=== PATIENT | female | born 1935 | race Caucasian/White ===

== ENCOUNTER 2020-08-19 11:40 | Emergency (ER) | payer OTHER ==
[~2020-08-19] VITALS: Ht 144.8 cm; Wt 34.0 kg
[2020-08-19 12:28] VITALS: BP 138/72
== END 2020-08-19 12:30 | disposition home or self-care (01) ==
LOC: M.ERS 11:40
DX: S61.411A Laceration without foreign body of right hand, initial encounter (principal); W22.8XXA Striking against or struck by other objects, initial encounter; Y93.89 Activity, other specified; Y92.89 Other specified places as the place of occurrence of the external cause; Y99.8 Other external cause status

== ENCOUNTER 2021-06-08 09:36 | Emergency (ER) | payer OTHER ==
[~2021-06-08] VITALS: Ht 144.8 cm; Wt 36.3 kg
[2021-06-08 10:00] LABS: URINE BILIRUBIN NEGATIVE (Negative); URINE BLOOD NEGATIVE (Negative); URINE CLARITY CLEAR; URINE COLOR YELLOW; URINE GLUCOSE-RANDOM NEGATIVE (Negative); URINE KETONES NEGATIVE (Negative); URINE LEUKOCYTES-REFLEX NEGATIVE (Negative); URINE NITRITE-REFLEX NEGATIVE (Negative); URINE PROTEIN NEGATIVE (Negative); URINE SPECIFIC GRAVITY 1.015 (1.005-1.030); URINE UROBILINOGEN 0.2 E.U./dl (0.2-1.0)
[2021-06-08 10:20] VITALS: BP 134/80
== END 2021-06-08 10:21 | disposition home or self-care (01) ==
LOC: M.ERS 09:36
PROVIDERS: Emergency Medicine Emergency Medical Services
DX: R35.0 Frequency of micturition (principal); M17.11 Unilateral primary osteoarthritis, right knee; R10.9 Unspecified abdominal pain; Z98.890 Other specified postprocedural states

== ENCOUNTER 2021-08-27 11:02 | Inpatient (IN) | payer OTHER ==
[~2021-08-27] VITALS: Ht 144.8 cm; Wt 38.9 kg
[2021-08-27 11:06] VITALS: BP 136/70
[2021-08-27 15:22] LABS: MCH 33.5 pg (26.0-34.0); MCHC 33.2 g/dL (28.0-37.0); WBC 12.1 thou/uL (4.0-11.0)
[2021-08-27 15:23] LABS: HEMATOCRIT 50.1 % (37.0-47.0); HEMOGLOBIN 16.6 gm/dL (12.0-15.0); MPV 8.3 fl. (7.2-11.1); NUCLEATED RBCS 0 /100WBC; PLATELET COUNT* 183 thou/uL (150-400); RBC 4.96 mil/uL (4.20-5.00)
[2021-08-27 15:50] LABS: ALBUMIN 3.5 g/dL (3.4-5.0); CALCIUM 10.7 mg/dL (8.5-10.1); CREATININE 0.8 mg/dL (0.6-1.3); POTASSIUM 3.4 mmol/L (3.5-5.1); TOTAL PROTEIN 7.4 g/dL (6.4-8.2)
--- NOTE | 2021-08-27 16:17 | EKG ---
[place] [address] ELECTROCARDIOGRAM REPORT Name: JAMES RICHARD Room: [facility]#: [id number] Admission: 08/27/21 Attend Phys: Discharge: Date of : 39 Date of Service: 08/27/21 1430 Report #: [id number] THIS REPORT FOR: //name// [facility] ED Test Date: 2021-08-27 Test Time: 14:30:00 Pat Name: JAMES RICHARD Department: Room: Gender: Cargo Handler: Hardeep : 1935 Requested By: Nishi Kuo Order Number: [id number] MD: Dannie Taylor Measurements Intervals [place] Rate: 80 P: 86 OR: 177 QRS: -88 QRSD: 135 T: 92 QT: 407 QTc: 470 Interpretive Statements Atrial-ventricular dual-paced rhythm No further analysis attempted due to paced rhythm Compared to ECG 11/01/2008 07:43:45 paced beats now noted Electronically Signed On 08-27-2021 16:17:01 VENDING MACHINE ASSEMBLER by Dannie Taylor [email or web address] <ELECTRONICALLY SIGNED> By: Dannie Taylor MD, FAC 08/27/21 1617 1430 1430 Dannie Taylor MD, [facility] /EPI
[2021-08-27 16:29] LABS: ABSOLUTE LYMPHOCYTES 0.7 thou/uL (0.8-5.3); ABSOLUTE MONOCYTES 1.2 thou/uL (0.0-1.2); ABSOLUTE NEUTROPHILS 10.2 thou/uL (1.6-8.1); LARGE PLATELETS RARE; PLATELET ESTIMATE ADEQUATE
[2021-08-27 20:06] LABS: URINE BILIRUBIN NEGATIVE (Negative); URINE BLOOD TRACE (Negative); URINE CLARITY CLEAR; URINE COLOR YELLOW; URINE GLUCOSE-RANDOM NEGATIVE (Negative); URINE KETONES 1+ (Negative); URINE LEUKOCYTES-REFLEX NEGATIVE (Negative); URINE NITRITE-REFLEX NEGATIVE (Negative); URINE PROTEIN TRACE (Negative); URINE SPECIFIC GRAVITY 1.015 (1.005-1.030); URINE UROBILINOGEN 0.2 E.U./dl (0.2-1.0)
[2021-08-27 21:28] VITALS: BP 131/71
[2021-08-28] VITALS (7 sets, daily range): BP systolic 120–149; BP diastolic 63–80
[2021-08-28] MEDS ORDERED: FISH OIL 1,001000 M2 PO (15:37)
[2021-08-28] MEDS ORDERED: MULTI VITAMIN1 EACH PO (15:38)
[2021-08-28] MEDS ORDERED: ACETAMINOPHEN325 M1 PO (15:39)
[2021-08-28] MEDS ORDERED: TYLENOL325 MG PO (15:40)
--- NOTE | 2021-08-28 15:46 | NUR ---
Attempted to assess pt x2. Attempted to call sister - but she is not accepting calls from [facility] phone number. Pt is admitted with a bowel obstruction and may need surgical intervention. Pt presently has a NG tube. Will attempt to see patient tommorow on 08/29/21. CM to follow for discharge planning.
--- NOTE | 2021-08-29 00:19 | NUR ---
ASSUMED CARE UPON ADMISSION TO ROOM 310 PER BED ACCOMPANIED BY ER STAFF. PATIENT ALERT, VERY [place] AND DOES NOT ANSWER QUESTIONS. NG TO LIS TO LT NARE, PLACED AT 70 CM, DRAINING DK GREEN FLUID. D5NS INFUSING AT 70 ML/HR PER LT HAND. SKIN TEAR TO LT WRIST HAS TEGADERM APPLIED. WEARS BRIEF. MADE COMFORTABLE IN BED. CALL LITE IN REACH. BED ALARM ON. HOURLY ROUNDS.
--- NOTE | 2021-08-29 05:34 | NUR ---
SLEPT MOST OF THE NIGHT. NG DRAINING DK GREEN FLUID. IVF INFUSING TO LT HAND. HAS BRIEF ON, BUT HAS NOT NEEDED TO VOID. HOURLY ROUNDS CONTINUE. BED ALARM ON. CALL LITE IN REACH.
--- NOTE | 2021-08-29 06:05 | NUR ---
AWOKE C/O BEING WET. BRIEF CHANGED, SKIN CARE DONE. NO C/O PAIN.
[2021-08-29 08:07] LABS: ABSOLUTE LYMPHOCYTES 0.9 thou/uL (0.8-5.3); ABSOLUTE MONOCYTES 1.3 thou/uL (0.0-1.2); ABSOLUTE NEUTROPHILS 8.3 thou/uL (1.6-8.1); BASOPHILS 0.1 %; EOSINOPHILS 0.1 %; HEMATOCRIT 47.6 % (37.0-47.0); HEMOGLOBIN 15.6 gm/dL (12.0-15.0); LYMPHOCYTES 8.3 %; MCH 33.3 pg (26.0-34.0); MCHC 32.8 g/dL (28.0-37.0); MCV 101.5 fL (80.0-100.0); MONOCYTES 12.6 %; MPV 8.3 fl. (7.2-11.1); NUCLEATED RBCS 0 /100WBC; PLATELET COUNT* 192 thou/uL (150-400); POLYS 78.9 %; RBC 4.69 mil/uL (4.20-5.00); RDW-CV 13.2 % (10.5-14.5); WBC 10.5 thou/uL (4.0-11.0)
[2021-08-29 08:13] VITALS: BP 130/74
[2021-08-29 08:21] LABS: CALCIUM 9.3 mg/dL (8.5-10.1); CREATININE 0.6 mg/dL (0.6-1.3); PHOSPHORUS* 1.7 mg/dL (2.5-4.9)
[2021-08-29 08:34] LABS: POTASSIUM 2.5 mmol/L (3.5-5.1)
--- NOTE | 2021-08-29 09:32 | NUR ---
Pt is admitted to the hospital on 08/27/21 for abdominal pain and was found to have an ileus. Pt presently has an NG tube. Pt may need surgical intervention. She reports she was walking on her driveway to take out the trash when her knees gave away and she fell and her neighbors assisted her. Pt is alert and oriented x3. Pt lives alone in her own home and has 7 steps to enter. Pt is vaccinated for Covid. Pt reports no hx of HH, DME, or SNF. Pt was still driving before coming to the hospital. Pt is [place] - and reports her hearing aids are at home. Pt saw her PCP approximately for 1 month. Anticipate patient may need SNF vs HH. But may benefit from considering transitioning to an Assisted Living. It is noted DPOA identifed as Darrion Badillo but no phone number found. Sister is listed as spokesperson. CM to follow for discharge planning.
[2021-08-29 15:52] VITALS: BP 129/83
--- NOTE | 2021-08-29 17:30 | NUR ---
CM FOLLOWUP PT NOT MEDICALLY CLEAR TO DC YET. PT PENDING TREATMENT FOR SMALL BOWEL OBSTRUCTION. CM TO FOLLOW FOR DC NEEDS.
[2021-08-29 20:30] VITALS: BP 102/56
[2021-08-30] VITALS: BP 100/59
[2021-08-30 04:00] VITALS: BP 116/62
[2021-08-30 05:17] LABS: HEMOGLOBIN 16.7 gm/dL (12.0-15.0); MCH 33.4 pg (26.0-34.0); MCHC 32.7 g/dL (28.0-37.0); MCV 102.1 fL (80.0-100.0); MPV 8.8 fl. (7.2-11.1); WBC 16.7 thou/uL (4.0-11.0)
[2021-08-30 05:29] LABS: CALCIUM 9.8 mg/dL (8.5-10.1); CREATININE 0.8 mg/dL (0.6-1.3); POTASSIUM 3.4 mmol/L (3.5-5.1)
--- NOTE | 2021-08-30 06:52 | NUR ---
She has been withdrawn. NG put out about 1500 mls. She did request pain meds x 1. She was incontinent of urine x 3 this shift. Vitals have been stable. This am Na+ was critical at 161. I did stop her IVf's, she is NPO though. Dr Calderon was notified via You Call [facility]. She put an order in for a stat redraw. Patient has been sleeping all shift, I did place her on O2 at 2L n/c.
[2021-08-30 07:19] LABS: CALCIUM 9.8 mg/dL (8.5-10.1); CREATININE 0.8 mg/dL (0.6-1.3); POTASSIUM 3.2 mmol/L (3.5-5.1)
[2021-08-30 08:00] VITALS: BP 104/56
[2021-08-30 13:52] LABS: CALCIUM 9.6 mg/dL (8.5-10.1); CREATININE 0.7 mg/dL (0.6-1.3); POTASSIUM 3.5 mmol/L (3.5-5.1)
[2021-08-30 16:00] VITALS: BP 103/59
--- NOTE | 2021-08-30 17:53 | NUR ---
CM FOLLOWUP PT NOT MEDICALLY CLEAR AND WILL BE STAYING THROUGH WEEKEND. PT PENDING PT/OT EVALS FOR PLACEMENT DETERMINATION. CM TO FOLLOW.
--- NOTE | 2021-08-30 18:25 | NUR ---
PATIENT RESTING IN BED. NG TO LEFT NARE TO INTERMITTENT LOW SUCTION. IV TO LEFT HAND WITH D 5 1/2 NORMAL SALINE INFUSTING AT 100MLS/HR. NO QUESTIONS OR CONCERNS VOICED.
[2021-08-30 22:28] VITALS: BP 124/62
[2021-08-31 00:06] VITALS: BP 127/76
[2021-08-31 04:00] VITALS: BP 105/66
--- NOTE | 2021-08-31 04:03 | NUR ---
PT ORIENTED TO SELF AND TIME, FORGETFUL. VSS ON 2L O2 NC, IV FLUIDS INFUSING ORDERED, NG TUBE IN PLACE WITH LIS, PT REPOSITIONED Q2H. PRN IV PAIN MED REQUESTED AND GIVEN ORDERED. PT NPO - NEED ORDER. PT SLEEPING WELL, WILL CONTINUE TO MONITOR.
[2021-08-31 04:07] LABS: HEMATOCRIT 45.9 % (37.0-47.0); HEMOGLOBIN 15.1 gm/dL (12.0-15.0); MCH 33.7 pg (26.0-34.0); MPV 9.3 fl. (7.2-11.1); RBC 4.5 mil/uL (4.20-5.00); RDW-CV 13.6 % (10.5-14.5); WBC 14.1 thou/uL (4.0-11.0)
[2021-08-31 04:28] LABS: CALCIUM 9.1 mg/dL (8.5-10.1); CREATININE 0.7 mg/dL (0.6-1.3); POTASSIUM 3.2 mmol/L (3.5-5.1)
[2021-08-31 08:00] VITALS: BP 124/61
[2021-08-31 12:18] LABS: CALCIUM 9.4 mg/dL (8.5-10.1); CREATININE 0.8 mg/dL (0.6-1.3); POTASSIUM 3.6 mmol/L (3.5-5.1)
[2021-08-31 15:58] VITALS: BP 97/60
[2021-08-31 20:45] VITALS: BP 111/60
[2021-09-01] VITALS (19 sets, daily range): BP systolic 90–132; BP diastolic 41–72
[2021-09-01 01:04] LABS: POTASSIUM 3.7 mmol/L (3.5-5.1)
--- NOTE | 2021-09-01 01:34 | NUR ---
AT [address] HAGEN WITH PT'S 0030 SODIUM LEVEL OF 159 AND POTASSIUM LEVEL OF 3.7. ORDERS GIVEN TO CHANGE IV FLUIDS TO D5W NS WITH 20K TO RUN AT 175MLS PER HOUR.
[2021-09-01 06:18] LABS: HEMOGLOBIN 14.8 gm/dL (12.0-15.0); MCH 33.7 pg (26.0-34.0); MCHC 32.8 g/dL (28.0-37.0); MCV 102.6 fL (80.0-100.0); MPV 9.6 fl. (7.2-11.1); RBC 4.39 mil/uL (4.20-5.00); RDW-CV 13.8 % (10.5-14.5); WBC 15.9 thou/uL (4.0-11.0)
[2021-09-01 07:17] LABS: CALCIUM 8.8 mg/dL (8.5-10.1); CREATININE 0.9 mg/dL (0.6-1.3); POTASSIUM 3.7 mmol/L (3.5-5.1)
[2021-09-01 09:18] LABS: BE 2.7 mmol/L (-2 to +3)
[2021-09-01 09:24] LABS: PO2 48.9 mmHg (75.0-100.0)
--- NOTE | 2021-09-01 10:26 | NUR ---
PT TRANSFERRED TO ROOM [address] LOZADA AT BEDSIDE TO ASSESS PT. PT ON BIPAP AT THIS TIME. TELE APPLIED. WILL CONTINUE TO ASSES.
--- NOTE | 2021-09-01 11:42 | NUR ---
ARRIVED IN PT ROOM AROUND 0830 TO COMPLETE PT VITALS AND ASSESSMENT. PT WAS A&O, RESPONDING TO QUESTIONS APPROPRIATLY. PT ON 2LO2 UPON ARRIVAL WITH O2 STAT OF 78%. OX RAISED TO 8LO2 PER NC, STAT OF 84%. RT CALLED AND ARRIVED AND PLACED PT ON NON REBREATHER MASK WITH 15LO2, STAT OF 91%. RAPID RESPONSE CALLED AT 0847. PT TRANSFERED TO ICU AROUND 1000.
[2021-09-01 13:08] LABS: CALCIUM 7.6 mg/dL (8.5-10.1); CREATININE 1.1 mg/dL (0.6-1.3); MAGNESIUM 1.3 mg/dL (1.8-2.4); POTASSIUM 3.4 mmol/L (3.5-5.1)
[2021-09-01 13:18] LABS: APTT 29.6 Seconds (25.0-31.3); INR 1.2; PROTIME 11.9 Seconds (9.20-11.50)
[2021-09-01 13:22] LABS: PO2 64.5 mmHg (75.0-100.0); pH 7.339 (7.340-7.450)
[2021-09-01 13:23] LABS: BE -4.8 mmol/L (-2 to +3)
[2021-09-01 14:22] LABS: ALBUMIN 1.6 g/dL (3.4-5.0); DIRECT BILIRUBIN 0.3 mg/dL (<0.1-0.3); TOTAL BILIRUBIN 0.9 mg/dL (<0.1-1.0); TOTAL PROTEIN 4.8 g/dL (6.4-8.2)
--- NOTE | 2021-09-01 15:26 | NUR ---
PT INTUBATED AND PLACED ON VENTILATOR. RIGHT FEMORAL ARTERIAL LINE AND CVC LINE PLACED. UROLOGY CONSULTED FOR INABILITY TO PLACE HARRINGTON CATHETER HOWEVER DR. JOHNSON GAVE INSTRUCTIONS TO START COUDE CATHETER WILL ATTEMPT AGAIN BUT HAVE BEEN UNSUCESSFUL SO FAR. CONTACT RENAL TO INFORM OF PT'S CONDITION AND PULMONARY CONSULTED. WILL CONTINUE TO ASSESS.
--- NOTE | 2021-09-01 18:29 | NUR ---
IRUNARY CATHETER STARTED BY UROLOGY.
--- NOTE | 2021-09-01 19:23 | NUR ---
YUMIKO REPORT GIVEN TO RAVI LOYOLA
[2021-09-01 20:36] LABS: BE -3.7 mmol/L (-2 to +3); PCO2 44.3 mmHg (35.0-45.0); PO2 80.6 mmHg (75.0-100.0); pH 7.321 (7.340-7.450)
[2021-09-01 20:44] LABS: CALCIUM 8.2 mg/dL (8.5-10.1); CREATININE 1.3 mg/dL (0.6-1.3); MAGNESIUM 3.9 mg/dL (1.8-2.4); POTASSIUM 4.2 mmol/L (3.5-5.1)
[2021-09-02] VITALS (64 sets, daily range): BP systolic 55–6255; BP diastolic 32–165
[2021-09-02 01:28] LABS: ALBUMIN 1.5 g/dL (3.4-5.0); CREATININE 1.4 mg/dL (0.6-1.3); MAGNESIUM 3.3 mg/dL (1.8-2.4); POTASSIUM 4.3 mmol/L (3.5-5.1); TOTAL BILIRUBIN 0.6 mg/dL (<0.1-1.0); TOTAL PROTEIN 4.8 g/dL (6.4-8.2)
[2021-09-02 06:25] LABS: HEMATOCRIT 39.5 % (37.0-47.0)
[2021-09-02 06:28] LABS: MCH 33.3 pg (26.0-34.0); MCHC 32.5 g/dL (28.0-37.0); MCV 102.6 fL (80.0-100.0); MPV 10.5 fl. (7.2-11.1); NUCLEATED RBCS 0 /100WBC; PLATELET COUNT* 120 thou/uL (150-400); RBC 3.85 mil/uL (4.20-5.00); RDW-CV 13.5 % (10.5-14.5); WBC 28.8 thou/uL (4.0-11.0)
--- NOTE | 2021-09-02 06:33 | NUR ---
ASSUMED CARE AT 1910H, ON VENT AT 100% AND TOLERATED. ON FENTANYL DRIP AND LEVO TITRATED. PULMO UPDATED PT'S LAB RESULT WITH ORDERS CARRIED OUT. 600ML GREENISH OUTPUT FROM OG. NO FEVER AND NO DISTRESS NOTED. CONTINUE MONITORING AND TOWARDS GOALS. LEVO AT .8MICS AND FENTANYL AT 70MICS.
[2021-09-02 06:38] LABS: HEMOGLOBIN 12.8 gm/dL (12.0-15.0)
[2021-09-02 06:39] LABS: PHOSPHORUS* 2.6 mg/dL (2.5-4.9)
[2021-09-02 07:58] LABS: ABSOLUTE LYMPHOCYTES 0.9 thou/uL (0.8-5.3); ABSOLUTE MONOCYTES 0.6 thou/uL (0.0-1.2); ABSOLUTE NEUTROPHILS 27.4 thou/uL (1.6-8.1)
[2021-09-02 07:59] LABS: PLATELET ESTIMATE ADEQUATE
[2021-09-02 10:38] LABS: BE -4.6 mmol/L (-2 to +3); PCO2 48.9 mmHg (35.0-45.0); PO2 90.7 mmHg (75.0-100.0)
[2021-09-02 10:44] LABS: pH 7.279 (7.340-7.450)
--- NOTE | 2021-09-02 12:41 | 2DMMODE ---
[place] [address] 2 D/M-MODE ECHOCARDIOGRAM Name: HILARYJAMES Room: [address] IN [facility]#: [id number] Admission: 08/27/21 Attend Phys: Nir Stratton Discharge: Date of : 39 Date of Service: 09/02/21 1240 Report #: [id number] THIS REPORT FOR: cc: Jose Cormier MD, Gary E. MD Holkins,Riky Aleman MD [facility] ~ APPROVED REPORT Study performed: 09/02/2021 09:57:58 EXAM: Comprehensive 2D, Doppler, and color-flow Echocardiogram Patient Location: In-Patient Room #: 005 Status: routine BSA: 1.18 HR: 80 bpm BP: 103/51 mmHg Rhythm: NSR Other Information Study Quality: Good Indications Septic Shock 2D Dimensions IVSd: 8.57 (7-11mm) LVOT Diam: 16.72 (18-24mm) LVDd: 33.57 mm PWd: 5.70 (7-11mm) LVDs: 17.99 (25-40mm) Aortic Root: 33.05 mm Aortic Valve AoV Peak Brent.: 1.16 m/s AO Peak Gr.: 5.39 mmHg LVOT Max P.68 mmHg AO Mean Gr.: 2.41 mmHg LVOT Mean P.27 mmHg LVOT Max V: 0.82 m/s AO V2 VTI: 14.20 cm LVOT Mean V: 0.53 m/s KANCHAN (VTI): 1.54 cm2 LVOT V1 VTI: 9.94 cm Mitral Valve E/A Ratio: 0.97 MV Decel. Time: 172.37 ms MV E Max Brent.: 0.63 m/[place] [address] 2 D/M-MODE ECHOCARDIOGRAM Name: JAMES RICHARD Room: [address] IN [facility]#: [id number] Admission: 08/27/21 Attend Phys: Nir Stratton Discharge: Date of : 39 Date of Service: 09/02/21 1240 Report #: [id number] MV PHT: 49.99 ms MVA (PHT): 4.40 cm2 TDI E/Lateral E': 5.73 Lateral E' Brent.: 0.11 m/s Pulmonary Valve PV Peak Brent.: 0.76 m/s PV Peak Gr.: 2.30 mmHg Tricuspid Valve RAP Estimate: 5.00 mmHg TR Peak Gr.: 30.38 mmHg RVSP: 35.00 mmHg PA Pressure: 35.00 mmHg Left Ventricle The left ventricle is normal size. There is normal LV segmental wall motion. There is normal left ventricular wall thickness. Left ventricular systolic function is normal. The left ventricular ejection fraction is within the normal range. LVEF is 60-65%. This study is not technically sufficient to allow evaluation of the LV diastolic function. Right Ventricle The right ventricle is normal size. The right ventricular systolic function is normal. Pacemaker lead is present in the right ventricle. Atria The left atrium size is normal. The right atrium size is normal. Aortic Valve Mild aortic valve sclerosis. No aortic regurgitation is present. There is no aortic valvular stenosis. Mitral Valve The mitral valve is normal in structure. There is no mitral valve regurgitation noted. No evidence of mitral valve stenosis. Tricuspid Valve The tricuspid valve is normal in structure. Trace tricuspid regurgitation. Mild pulmonary hypertension. Pulmonic Valve The pulmonary valve is normal in structure. There is no pulmonic [place] [address] 2 D/M-MODE ECHOCARDIOGRAM Name: JAMES RICHARD Room: [address]#: [id number] Admission: 08/27/21 Attend Phys: Nir Stratton Discharge: Date of : 39 Date of Service: 09/02/21 1240 Report #: [id number] Great Vessels The aortic root is normal in size. IVC is normal in size and collapses >50% with inspiration. Pericardium There is no pericardial effusion. <Conclusion> The left ventricle is normal size. There is normal left ventricular wall thickness. Left ventricular systolic function is normal. The left ventricular ejection fraction is within the normal range. LVEF is 60-65%. The right ventricle is normal size. The left atrium size is normal. Mild aortic valve sclerosis. No aortic regurgitation is present. There is no aortic valvular stenosis. The mitral valve is normal in structure. The tricuspid valve is normal in structure. Trace tricuspid regurgitation. Mild pulmonary hypertension. IVC is normal in size and collapses >50% with inspiration. There is no pericardial effusion. There is normal LV segmental wall motion. Pacemaker lead is present in the right ventricle. <ELECTRONICALLY SIGNED> By: Riky Hunt MD, FACC 09/02/21 1240 1240 Riky Hunt MD, FACC /INF
--- NOTE | 2021-09-02 14:46 | NUR ---
Pt continues to be in the ICU. Pt continues to have a NG tube and on a vent. Anticipate pt will need SNF at discharge. CM to continue to follow for discharge planning.
[2021-09-02 15:16] LABS: ABSOLUTE BASOPHILS 0.1 thou/uL (0.0-0.2); ABSOLUTE LYMPHOCYTES 1.2 thou/uL (0.8-5.3); ABSOLUTE MONOCYTES 0.8 thou/uL (0.0-1.2); ABSOLUTE NEUTROPHILS 26.2 thou/uL (1.6-8.1); BASOPHILS 0.2 %; HEMATOCRIT 36.9 % (37.0-47.0); LYMPHOCYTES 4.2 %; MCH 33.2 pg (26.0-34.0); MCHC 32.5 g/dL (28.0-37.0); MCV 102.2 fL (80.0-100.0); MONOCYTES 2.8 %; MPV 10.2 fl. (7.2-11.1); NUCLEATED RBCS 0 /100WBC; PLATELET COUNT* 104 thou/uL (150-400); POLYS 92.8 %; RBC 3.61 mil/uL (4.20-5.00); RDW-CV 13.5 % (10.5-14.5); WBC 28.2 thou/uL (4.0-11.0)
--- NOTE | 2021-09-02 15:24 | EKG ---
[place] [address] ELECTROCARDIOGRAM REPORT Name: JAMES RICHARD Room: [address] ADM IN .R.#: [id number] Admission: 08/27/21 Attend Phys: Nir Stratton Discharge: Date of : 39 Date of Service: 08/28/212042 Report #: [id number] THIS REPORT FOR: //name// [facility] ED Test Date: 2021-08-28 Test Time: 20:43:11 Pat Name: JAMES RICHARD Department: Room: [address] Gender: F Furnace Liner: : 1935 Requested By: Nishi Padilla Order Number: [id number] Shai MD: Riky Hunt Measurements Intervals [place] Rate: 76 P: 98 HI: 176 QRS: 268 QRSD: 137 T: 87 QT: 406 QTc: 457 Interpretive Statements Atrial-sensed ventricular-paced rhythm No further analysis attempted due to paced rhythm Compared to ECG 08/27/2021 14:30:00 AV dual-paced complex(es) or rhythm no longer present Electronically Signed On 09-02-2021 15:24:19 GRADE RECORDER by Riky Hunt [email or web address] <ELECTRONICALLY SIGNED> By: Riky Hunt MD, [facility] 09/02/21 1524 42 42 Riky Hunt MD, [facility] /EPI
[2021-09-02 15:31] LABS: ALBUMIN 2.7 g/dL (3.4-5.0); CALCIUM 8.1 mg/dL (8.5-10.1); CREATININE 1.6 mg/dL (0.6-1.3); POTASSIUM 3.9 mmol/L (3.5-5.1); TOTAL BILIRUBIN 0.8 mg/dL (<0.1-1.0); TOTAL PROTEIN 5.7 g/dL (6.4-8.2)
[2021-09-02 15:58] LABS: BE -4.3 mmol/L (-2 to +3); PCO2 36.2 mmHg (35.0-45.0); pH 7.368 (7.340-7.450)
[2021-09-02 16:00] LABS: PO2 200.9 mmHg (75.0-100.0)
--- NOTE | 2021-09-02 16:08 | CON ---
[address] [address] CONSULTATION Name: JAMES RICHARD Toño Room: [address] IN [facility]#: [id number] Admission: 08/27/21 Attend Phys: Lamin Barrios Discharge: Date of : 39 Report #: [id number] THIS REPORT FOR: cc: Jose Cormier MD, Gary E. MD Pervez, Adeel MD ~ DATE OF CONSULTATION: 09/01/2021 REQUESTING PHYSICIAN: Dr. Calderon. INDICATION FOR CONSULTATION: Acute hypoxemic respiratory failure. HISTORY OF PRESENT ILLNESS: An 86-year-old female information regarding her past medical history is limited. I do not see any documentation of a cardiac or respiratory disease in the past; however, there is significant hyperinflation of the chest x-ray, which is suspicious of COPD. The patient is now admitted on 08/27, has been treated for a small bowel obstruction, which apparently on subsequent imaging by x-ray, it appears to be better. The patient also has had significant electrolyte abnormalities including a sodium markedly elevated all the way up to 161, at one point was normal on admission at 139. The patient this morning went into respiratory distress. She is also profoundly hypotensive and appears to be cold and mottled. Therefore, she is endotracheally intubated. We just started norepinephrine. We have been able to bring her blood pressure up, a central line and aid arterial lines are just being placed and now. The patient is unable to provide a further history or review of systems. PAST MEDICAL HISTORY: Mastoid surgery, left sided hemicolectomy, diverticulitis. HOME MEDICATIONS: Unknown. SOCIAL HISTORY: Unknown. FAMILY HISTORY: Unknown. PHYSICAL EXAMINATION: GENERAL: She was in respiratory distress. VITAL SIGNS: She has now been intubated. She is on 100% FiO2, 5 of PEEP. We are maintaining O2 saturations in the high 90s. She is on high-dose Levophed to maintain blood pressure, the pulse of around 95 and a blood pressure of 90/[address]. She is not overbreathing the ventilator, which is set at 16 with a tidal volume of 450 . She appears emaciated, body mass index is 16.1. [place] [address] CONSULTATION Name: JAMES RICHARD Toño Room: [address]#: [id number] Admission: 08/27/21 Attend Phys: Lamin Barrios Discharge: Date of : 39 Report #: [id number] HEENT: Head is normocephalic and atraumatic. NECK: Neck does show some prominent veins, but no asymmetry, mass or lymph nodes. CHEST: Symmetrical expansion on inspection and palpation. On auscultation, breath sounds are bilaterally equal. She was initially tachypneic. I do not hear any added sounds. HEART: Regular. There is no murmur. ABDOMEN: Abdomen is distended. It is difficult to ascertain tenderness. EXTREMITIES: Lower extremities show no edema, no calf tenderness. She is mottled. NEUROLOGIC: No focal deficit identified. ASSESSMENT AND PLAN: 1. Acute hypoxemic respiratory failure. For now, we are oxygenating and ventilating adequately. However, we are on 100% FiO2 with 5 of PEEP. In order to limit worsening abdominal issues, I did not order fentanyl drip for now. She is hypotensive. I ordered a Versed drip with p.r.n. Versed and fentanyl with the sedation according to response. We will reassess once the central line and arterial line in place and we are able to get an ABG. 2. Shock, possibly septic shock. I did bolus her with 500 mL of LR, werner culture, would start Zosyn. We will see where we stand once we have her arterial blood gases in place. If we are able to oxygenate and ventilate her adequately, then I intend to give her more fluids. I understand that the Nephrology Services also on the case and earlier they had recommended D5W due to high sodium levels, will touch base with the Nephrology Service. Follow sodium levels. 3. Small bowel obstruction/abdominal distention. Dr. Restrepo is on the case. 4. Hyperinflation/possible chronic obstructive pulmonary disease. For now, I did go ahead and order Solu-Medrol as well as nebulized bronchodilators. We will try to get more history. 5. Hyperglycemia, insulin sliding scale. 6. Gastrointestinal prophylaxis, Protonix. 7. Deep venous thrombosis prophylaxis, Lovenox. 8. The patient is critically ill at this time. Total time spent providing critical care to this patient today exceeds 41 minutes. <ELECTRONICALLY SIGNED> By: Gilberto Ulloa MD 09/02/21 1608 1055 [id number] Ulloa MD /nt
--- NOTE | 2021-09-02 18:10 | NUR ---
VERSED GTT 100CC WASTED PER PROTOCOL. GTT WAS HUNG BUT NEVER USED ON PREVIOUS SHIFT.
--- NOTE | 2021-09-02 18:11 | NUR ---
REPORT RECIEVED FROM Melita CASTANO. ETT 7.0 20@LIP INTACT AND CONNECTED TO VENTIALTOR. VENT SETTINGS TV 400, PEEP 8, FIO2 100% AND AC 16. HARRINGTON INTACT AND PATENT DRAINING YELLOW URINE TO BEDSIDE BAG. . OGT INTACT AND CONNECTED TO LIS. PT HAS HAD GOOD SHIFT WITH NO ACUTE DISTRESS NOTED AT THIS TIME. MOMITORS INTACT WILL CONTINUE TO MONITOR. PT RESPONDS TO STIMULATION BY OPENING EYES OR WITHDRAWING FROM PAIN.
[2021-09-03] VITALS (64 sets, daily range): BP systolic 73–155; BP diastolic 34–77
--- NOTE | 2021-09-03 04:17 | NUR ---
ASSUMED CARE AT 1900H, ON VENT AT 45% AND TOLERATED. STILL ON FENTANYL AT 70MICS AND LEVO DRIP, TITRATED. PT OPENED EYES AT TIMES SPONTENEOUS AND LOCALIZED TO PAIN. TUBE FEEDING TOLERATED. NO FEVER AND NO DISTRESS NOTED. CONTINUE MONITORING AND TOWARDS GOALS. LEVO AT .28MICS.
[2021-09-03 05:07] LABS: ABSOLUTE BASOPHILS 0.1 thou/uL (0.0-0.2); ABSOLUTE LYMPHOCYTES 1.1 thou/uL (0.8-5.3); ABSOLUTE MONOCYTES 0.9 thou/uL (0.0-1.2); ABSOLUTE NEUTROPHILS 24.5 thou/uL (1.6-8.1); BASOPHILS 0.2 %; HEMOGLOBIN 10.6 gm/dL (12.0-15.0); LYMPHOCYTES 4.1 %; MCH 33.2 pg (26.0-34.0); MCHC 33.1 g/dL (28.0-37.0); MCV 100.2 fL (80.0-100.0); MONOCYTES 3.4 %; MPV 10.8 fl. (7.2-11.1); NUCLEATED RBCS 0 /100WBC; PLATELET COUNT* 98 thou/uL (150-400); POLYS 92.3 %; RBC 3.19 mil/uL (4.20-5.00); RDW-CV 13.3 % (10.5-14.5); WBC 26.5 thou/uL (4.0-11.0)
[2021-09-03 05:23] LABS: CALCIUM 8.5 mg/dL (8.5-10.1); CREATININE 1.7 mg/dL (0.6-1.3); MAGNESIUM 2.6 mg/dL (1.8-2.4); TOTAL BILIRUBIN 0.8 mg/dL (<0.1-1.0); TOTAL PROTEIN 5.7 g/dL (6.4-8.2)
[2021-09-03 08:12] LABS: BE 1.6 mmol/L (-2 to +3); PCO2 37.7 mmHg (35.0-45.0); PO2 112.8 mmHg (75.0-100.0); pH 7.449 (7.340-7.450)
[2021-09-03 13:12] LABS: BE -0.5 mmol/L (-2 to +3); PCO2 35.8 mmHg (35.0-45.0); PO2 77.6 mmHg (75.0-100.0); pH 7.434 (7.340-7.450)
--- NOTE | 2021-09-03 14:22 | NUR ---
Discussed in team meeting that patient would likely need SNF on discharge. Called son/DPOA/ Darrion Badillo . Darrion is open to the idea but hoped she could return home with home health. Discussed at this time we were recommending SNF but if she was able to progress to the point we thought she could return home with home health this could be set up as well. Darrion requested that I call her sister Julissa at: [phone]. Called Julissa and she agrees that likely pt will need SNF. Julissa reports pt has been to a SNF in the [place] area in the past but is unable to recall the name. Discussed [facility], [facility], and possibly [facility] (will confirm) . Julissa and Darrion are both asking if they can get updates from the RN. Pt was transferred to the ICU and they are reporting they were not called and notified. Spoke with pt's RN and provided contact phone numbers for family and requested he call and provide an update as able. CM to continue to follow patient for discharge planning.
[2021-09-03 16:03] LABS: CALCIUM 8.6 mg/dL (8.5-10.1); CREATININE 1.7 mg/dL (0.6-1.3); POTASSIUM 3.9 mmol/L (3.5-5.1)
--- NOTE | 2021-09-03 18:00 | NUR ---
Pt recieved on Vent and sedated. Sedation vacation done Pt able to sustain RASS 0, -1. Pt able to follow commnads. Tube feedings advanced to 30ml/hr and tolerated. Breathing trial conducted later in shift for ~4hrs. Pt did well, descision made to extubate. Stomach emptied via OGT prior to extubation. No issues following extubation to Nasal Canula. Pt continues to be hypotensive requiring levophed. Levo titrated down as tolerated. Urine output good.
[2021-09-04] VITALS (142 sets, daily range): BP systolic 89–146; BP diastolic 42–85
--- NOTE | 2021-09-04 04:39 | NUR ---
ASSUMED CARE AT 1900H, ON NC AT 4-5LPM AND TOLERATED. PT WAS CONFUSED/ORIENTED, DROWSY AND HARD OF HEARING. ON LEVO THEN OFF ARROUND 4AM. NO FEVER AND DISTRESS. PT WAS A MOUTH BREATHER, NC ON HER MOUTH. CONTINUE MONITORING AND TOWARDS GOALS.
[2021-09-04 06:19] LABS: ABSOLUTE BASOPHILS 0.1 thou/uL (0.0-0.2); ABSOLUTE LYMPHOCYTES 0.4 thou/uL (0.8-5.3); ABSOLUTE MONOCYTES 0.7 thou/uL (0.0-1.2); ABSOLUTE NEUTROPHILS 23.4 thou/uL (1.6-8.1); BASOPHILS 0.2 %; HEMATOCRIT 27.5 % (37.0-47.0); HEMOGLOBIN 9.2 gm/dL (12.0-15.0); LYMPHOCYTES 1.7 %; MCH 33.3 pg (26.0-34.0); MCHC 33.3 g/dL (28.0-37.0); MCV 100.1 fL (80.0-100.0); MONOCYTES 2.8 %; MPV 11.6 fl. (7.2-11.1); NUCLEATED RBCS 0 /100WBC; PLATELET COUNT* 69 thou/uL (150-400); POLYS 95.3 %; RBC 2.75 mil/uL (4.20-5.00); RDW-CV 13.2 % (10.5-14.5); WBC 24.5 thou/uL (4.0-11.0)
[2021-09-04 06:35] LABS: ALBUMIN 2.8 g/dL (3.4-5.0); CALCIUM 8.5 mg/dL (8.5-10.1); CREATININE 1.4 mg/dL (0.6-1.3); TOTAL BILIRUBIN 0.8 mg/dL (<0.1-1.0); TOTAL PROTEIN 5.4 g/dL (6.4-8.2)
[2021-09-04 06:40] LABS: POTASSIUM 2.8 mmol/L (3.5-5.1)
[2021-09-04 11:34] LABS: BE -0.7 mmol/L (-2 to +3); PCO2 32.7 mmHg (35.0-45.0); pH 7.458 (7.340-7.450)
[2021-09-04 11:52] LABS: PO2 68.6 mmHg (75.0-100.0)
--- NOTE | 2021-09-04 12:41 | NUR ---
spoke with patient regarding code status she would not want a breathing tube if nesseary. she is currently AOX4.
--- NOTE | 2021-09-04 13:07 | NUR ---
Pt is moving out of the ICU today. Called sister - Julissa at: [phone]. Discussed the recommendation was for SNF and attempted to discuss options but Julissa and patient's son - Darrion continue to hold out hope that pt will improve well enough she can return home with home health. Per Doctor - therapy has been ordered today. Julissa would prefer for therapy to see patient and find out what their recommendations are and discuss further tommorow. CM to continue to follow for discharge planning.
[2021-09-04 13:21] LABS: ABSOLUTE BASOPHILS 0.1 thou/uL (0.0-0.2); ABSOLUTE LYMPHOCYTES 0.4 thou/uL (0.8-5.3); ABSOLUTE MONOCYTES 0.6 thou/uL (0.0-1.2); ABSOLUTE NEUTROPHILS 25.4 thou/uL (1.6-8.1); BASOPHILS 0.2 %; HEMATOCRIT 31.6 % (37.0-47.0); HEMOGLOBIN 10.4 gm/dL (12.0-15.0); LYMPHOCYTES 1.7 %; MCH 33.4 pg (26.0-34.0); MCHC 32.9 g/dL (28.0-37.0); MCV 101.7 fL (80.0-100.0); MONOCYTES 2.3 %; MPV 11.2 fl. (7.2-11.1); NUCLEATED RBCS 0 /100WBC; PLATELET COUNT* 74 thou/uL (150-400); POLYS 95.8 %; RBC 3.11 mil/uL (4.20-5.00); RDW-CV 13.6 % (10.5-14.5); WBC 26.5 thou/uL (4.0-11.0)
[2021-09-04 13:40] LABS: ALBUMIN 2.9 g/dL (3.4-5.0); CALCIUM 8.3 mg/dL (8.5-10.1); CREATININE 1.4 mg/dL (0.6-1.3); MAGNESIUM 1.9 mg/dL (1.8-2.4); TOTAL BILIRUBIN 0.9 mg/dL (<0.1-1.0); TOTAL PROTEIN 5.7 g/dL (6.4-8.2)
[2021-09-04 13:44] LABS: POTASSIUM 5.6 mmol/L (3.5-5.1)
[2021-09-04 13:53] LABS: BE -0.8 mmol/L (-2 to +3); PCO2 33.5 mmHg (35.0-45.0); PO2 85.2 mmHg (75.0-100.0); pH 7.449 (7.340-7.450)
--- NOTE | 2021-09-04 19:52 | NUR ---
PT RECEIVED ON 4L N/C. AOX4. PT TACHYPNIC WITH SHALLOW BREATHS - ATTENDING NOTIFIED, NO NEW ORDERS. PT TRANSPORTED TO [facility] AND CT FOR SCANS. ON RETURN FROM TRANSPORT PT BEGAN HAVING UPPER AIRWAY GURGGLEING - NASO TRACHEAL SUCTIONING PERFORMED, COPIOUS BILIOUS SECRETIONS SUCTIONED - ATTENDING NOTIFIED AND AT BEDSIDE. THIS RN DISCUSSED WITH PT CODE STATUS - SEE NOTE, ATTENDING NOTIFIED OF PT WISHES TO BECOM DNI. CODE SATUS UPDATED. LASIX GIVEN, PT PLACED ON BIPAP. IR CONSULTED FOR THORACENTESUS - PER IR TEAM NO INTERVENTION NESSESARY. IVF STOPPED. UOP ADEQUATE. POTASSIUM REPLACED. INTERMITTENTLY TACHY - PROVIDER NOTIFIED. WILL CONTINUE TO MONITOR.
[2021-09-05] VITALS (23 sets, daily range): BP systolic 101–154; BP diastolic 46–86
--- NOTE | 2021-09-05 04:22 | NUR ---
ASSUMED CARE AT 1910H, ON BIPAP AT 50% AND TITRTED DOWN TO 35%. PT WAS CALM AND COOPERATIVE. NO FEVER AND NO DISTRESS. CONTINUE MONITORING AND TOWARDS GOALS.
[2021-09-05 05:43] LABS: HEMATOCRIT 30.8 % (37.0-47.0); HEMOGLOBIN 10.3 gm/dL (12.0-15.0); MCH 33.5 pg (26.0-34.0); MCHC 33.5 g/dL (28.0-37.0); MCV 100.1 fL (80.0-100.0); MPV 10.8 fl. (7.2-11.1); RBC 3.08 mil/uL (4.20-5.00); RDW-CV 13.5 % (10.5-14.5); WBC 16.8 thou/uL (4.0-11.0)
[2021-09-05 06:01] LABS: ALBUMIN 2.6 g/dL (3.4-5.0); CALCIUM 8.4 mg/dL (8.5-10.1); CREATININE 1.2 mg/dL (0.6-1.3); MAGNESIUM 1.8 mg/dL (1.8-2.4); TOTAL BILIRUBIN 1.1 mg/dL (<0.1-1.0); TOTAL PROTEIN 5.4 g/dL (6.4-8.2)
[2021-09-05 06:13] LABS: POTASSIUM 2.9 mmol/L (3.5-5.1)
--- NOTE | 2021-09-05 11:47 | NUR ---
Plan was to move pt out of the ICU yesterday - however pt left the floor for a CT of the chest and had an Aspiration Event and went into Respiratory Distress and was placed back on the Bipap. Called sister - Julissa and updated . Anticipate pt will need SNF. Therapy was re-ordered for 09/04/21. Family is wanting pt to return home with home health and displays limited insight. Sister would like to see how she does in therapy and is wanting to know therapy recommendatios before considering SNF. CM to continue to follow for discharge planning.
[2021-09-05 12:47] LABS: CALCIUM 8.8 mg/dL (8.5-10.1); CREATININE 1.2 mg/dL (0.6-1.3)
[2021-09-05 13:51] LABS: BE 4.7 mmol/L (-2 to +3); PCO2 40.7 mmHg (35.0-45.0); pH 7.467 (7.340-7.450)
[2021-09-05 13:59] LABS: PO2 128.6 mmHg (75.0-100.0)
--- NOTE | 2021-09-05 18:37 | NUR ---
REPORT RECIEVED FORM TITO KAUFMAN RN. PT AWAKE AND ALERT. DENIES PAIN. HARRINGTON INTACT AND PATENT DRAINING YELLOW URINE TO BEDSIDE BAG. NO ACUTE DISTRESS NOTED PICC LINE PLACED PER PICC RN. PLACEMENT VERIFIED PER XRAY ART LINE AND FEMORAL CENTRAL LINE REMOVED ORDERED, PT RESTING QUIELTY IN NO ACUTE DISTRESS.
[2021-09-06] VITALS: BP 107/59
[2021-09-06 04:00] VITALS: BP 124/70
[2021-09-06 05:44] LABS: ABSOLUTE BASOPHILS 0.1 thou/uL (0.0-0.2); ABSOLUTE LYMPHOCYTES 0.8 thou/uL (0.8-5.3); ABSOLUTE NEUTROPHILS 15.8 thou/uL (1.6-8.1); BASOPHILS 0.5 %; EOSINOPHILS 0.1 %; HEMATOCRIT 32.5 % (37.0-47.0); HEMOGLOBIN 10.8 gm/dL (12.0-15.0); LYMPHOCYTES 4.3 %; MCH 33.2 pg (26.0-34.0); MCHC 33.3 g/dL (28.0-37.0); MCV 99.6 fL (80.0-100.0); MONOCYTES 5.9 %; MPV 11.4 fl. (7.2-11.1); NUCLEATED RBCS 0 /100WBC; PLATELET COUNT* 125 thou/uL (150-400); POLYS 89.2 %; RBC 3.27 mil/uL (4.20-5.00); RDW-CV 13.2 % (10.5-14.5); WBC 17.7 thou/uL (4.0-11.0)
[2021-09-06 05:54] LABS: ALBUMIN 2.7 g/dL (3.4-5.0); CALCIUM 8.8 mg/dL (8.5-10.1); MAGNESIUM 2.2 mg/dL (1.8-2.4); POTASSIUM 3.9 mmol/L (3.5-5.1); TOTAL BILIRUBIN 1.4 mg/dL (<0.1-1.0); TOTAL PROTEIN 5.5 g/dL (6.4-8.2)
[2021-09-06 08:00] VITALS: BP 139/86
[2021-09-06 09:42] LABS: BE 5.9 mmol/L (-2 to +3); PCO2 43.7 mmHg (35.0-45.0); PO2 61.7 mmHg (75.0-100.0); pH 7.461 (7.340-7.450)
[2021-09-06 11:10] LABS: BE 6.3 mmol/L (-2 to +3); pH 7.471 (7.340-7.450)
[2021-09-06 11:12] LABS: PO2 136.2 mmHg (75.0-100.0)
[2021-09-06 12:00] VITALS: BP 98/63
--- NOTE | 2021-09-06 14:59 | NUR ---
PLAN OF CARE: PHYSICIAN INFORMS OF PLAN FOR PT TO REMAIN INPT THROUGH THE WEEKEND. PT/OT F/U WILL BE NEEDED TO ASSIST WITH CM D/C PLANNING FOR SNF VS HOME WITH HH. CM WILL REMAIN AVAILABLE TO ASSIST AND FOLLOW NEEDED.
[2021-09-06 16:00] VITALS: BP 104/78
[2021-09-06 20:00] VITALS: BP 155/78
[2021-09-06 20:57] LABS: CALCIUM 8.7 mg/dL (8.5-10.1); CREATININE 0.9 mg/dL (0.6-1.3); POTASSIUM 3.5 mmol/L (3.5-5.1)
[2021-09-07] VITALS: BP 119/72
[2021-09-07 04:00] VITALS: BP 122/80
[2021-09-07 04:48] LABS: HEMATOCRIT 32.8 % (37.0-47.0); HEMOGLOBIN 10.9 gm/dL (12.0-15.0); MCH 33.5 pg (26.0-34.0); MCHC 33.2 g/dL (28.0-37.0); MCV 100.9 fL (80.0-100.0); MPV 10.4 fl. (7.2-11.1); RBC 3.25 mil/uL (4.20-5.00); RDW-CV 13.5 % (10.5-14.5); WBC 15.6 thou/uL (4.0-11.0)
--- NOTE | 2021-09-07 05:10 | NUR ---
ASSUMED CARE OF PT AFTER REPORT AT 1930. PT A&OX1. VSS. PHYSICAL ASSESSMENT COMPLETED AND CHARTED. PT ON HFNC 6L/BIPAP 35%. PT TRACING SR/SB/BBB/VPACED ON TELE. PT WITH HARRINGTON TO DEPENDENT DRAIN. FALL PRECAUTIONS IN PLACE. MAINTAINED ON NPO-AWAITING ST EFRA.
[2021-09-07 05:12] LABS: CALCIUM 8.3 mg/dL (8.5-10.1); CREATININE 0.8 mg/dL (0.6-1.3); POTASSIUM 3.7 mmol/L (3.5-5.1)
--- NOTE | 2021-09-07 07:05 | NUR ---
CHANGE OF SHIFT REPORT GIVEN PATIENT SEEN IN BED ASLEEP ASSUMED PATIENT CARE
[2021-09-07 08:00] VITALS: BP 111/73
[2021-09-07 12:10] VITALS: BP 104/69
[2021-09-07 16:12] VITALS: BP 121/73
[2021-09-07 20:00] VITALS: BP 108/57
[2021-09-08 00:17] VITALS: BP 100/68
[2021-09-08 04:00] VITALS: BP 121/64
--- NOTE | 2021-09-08 05:56 | NUR ---
ASSUMED CARE OF PT AFTER REPORT AT 1930. PT A&OX1. VSS. PHYSICAL ASSESSMENT COMPLETED AND CHARTED. PT ON HFNC 6L/BIPAP 35% AT HS. PT TRACING AVPACED ON TELE. PT WITH HARRINGTON TO DEPENDENT DRAIN. MAINTAINED ON NPO-AWAITING ST EVALUATION. FALL PRECAUTIONS IN PLACE. CALL LIGHT WITHIN REACH.
--- NOTE | 2021-09-08 07:15 | NUR ---
CHANGE OF SHIFT REPORT GIVEN PATIENT SEEN AT BEDSIDE, IN BED ASLEEP ASSUMED PATIENT CARE
[2021-09-08 08:00] VITALS: BP 98/71
[2021-09-08 12:10] VITALS: BP 118/67
[2021-09-08 15:51] VITALS: BP 122/72
[2021-09-08 20:00] VITALS: BP 124/68
--- NOTE | 2021-09-09 00:50 | NUR ---
PT STARTED DESATING AT 0040. DOWN TO 70S. PT REMOVED FROM BIPAP AND SUPPORTED WITH AMBU BAG. PT LOST HER PULSE AND IS A DNR. OBTAINED ORDER FOR 2 RNS TO PRONOUNCE . PRONOUNCED. ATTEMPTED TO NOTIFIEY SISTER AT NUMBER ON FACE SHEET. CHRIS ROGERS [phone]. 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 WORK NUMBER PROVIDED [phone]. MAHAD LOU ANSWERED CALL. LEFT NAME AND NUMBER FOR SISTER TO CALL HOSPITAL. WILL ATTEMPT TO CALL SISTER AT 0700.
--- NOTE | 2021-09-09 01:10 | NUR ---
PURSE, HEARING AID, DENTURES AND CLOTHING SENT WITH PT TO [facility].
--- NOTE | 2021-09-09 06:45 | NUR ---
ATTEMPTED TO CONTACT SISTER CHRIS ROGERS AT HOME [phone]. UNABLE TO LEAVE VOICE MSG.
== END 2021-09-08 23:58 | DRG 393 ==
LOC: M.ERS 11:02 → M.TBA-ER 17:20 → M.3W 08-28 22:48 → M.ICU 09-01 10:12 → M.2W 09-05 20:09
PROVIDERS: Internal Medicine; Internal Medicine Critical Care Medicine; Internal Medicine Nephrology; Nurse Practitioner Family; ADMIT Internal Medicine; ATTEND Internal Medicine
PROC: 0D9670Z Drainage of Stomach with Drainage Device, Via Natural or Artificial Opening (ICD-10-PCS; principal; 2021-08-29)
PROC: 04HY32Z Insertion of Monitoring Device into Lower Artery, Percutaneous Approach (ICD-10-PCS; 2021-09-01)
PROC: 5A1935Z Respiratory Ventilation, Less than 24 Consecutive Hours (ICD-10-PCS; 2021-09-01)
PROC: 0BH17EZ Insertion of Endotracheal Airway into Trachea, Via Natural or Artificial Opening (ICD-10-PCS; 2021-09-01)
PROC: 06HY33Z Insertion of Infusion Device into Lower Vein, Percutaneous Approach (ICD-10-PCS; 2021-09-01)
PROC: 5A09357 Assistance with Respiratory Ventilation, Less than 24 Consecutive Hours, Continuous Positive Airway Pressure (ICD-10-PCS; 2021-09-04)
PROC: 02HV33Z Insertion of Infusion Device into Superior Vena Cava, Percutaneous Approach (ICD-10-PCS; 2021-09-05)
PROC: 5A09357 Assistance with Respiratory Ventilation, Less than 24 Consecutive Hours, Continuous Positive Airway Pressure (ICD-10-PCS; 2021-09-05)
PROC: 5A0935A Assistance with Respiratory Ventilation, Less than 24 Consecutive Hours, High Flow/Velocity Cannula (ICD-10-PCS; 2021-09-06)
PROC: 5A09357 Assistance with Respiratory Ventilation, Less than 24 Consecutive Hours, Continuous Positive Airway Pressure (ICD-10-PCS; 2021-09-06)
PROC: 5A0935A Assistance with Respiratory Ventilation, Less than 24 Consecutive Hours, High Flow/Velocity Cannula (ICD-10-PCS; 2021-09-07)
PROC: 5A09357 Assistance with Respiratory Ventilation, Less than 24 Consecutive Hours, Continuous Positive Airway Pressure (ICD-10-PCS; 2021-09-07)
PROC: 5A0935A Assistance with Respiratory Ventilation, Less than 24 Consecutive Hours, High Flow/Velocity Cannula (ICD-10-PCS; 2021-09-08)
DX: K43.6 Other and unspecified ventral hernia with obstruction, without gangrene (principal); J96.01 Acute respiratory failure with hypoxia; E87.0 Hyperosmolality and hypernatremia; N17.9 Acute kidney failure, unspecified; Z20.822 Contact with and (suspected) exposure to COVID-19; R73.9 Hyperglycemia, unspecified; E87.6 Hypokalemia; R33.9 Retention of urine, unspecified; E87.70 Fluid overload, unspecified; I95.9 Hypotension, unspecified; I50.9 Heart failure, unspecified; D64.9 Anemia, unspecified; Z66 Do not resuscitate; Z28.21 Immunization not carried out because of patient refusal